=== PATIENT | female | born 1980 | race Hispanic/Latino ===

== ENCOUNTER 2023-12-03 16:38 | Emergency (ER) | payer OTHER ==
[~2023-12-03] VITALS: Ht 157.5 cm; Wt 53.1 kg
[2023-12-03] MEDS ORDERED: HYDROXYZINE PAM50 MG PO (17:10)
[2023-12-03] MEDS ORDERED: ESTRADIOL1 MG PO (17:10)
[2023-12-03] MEDS ORDERED: TOPIRAMATE50 MG PO (17:11)
[2023-12-03] MEDS ORDERED: METHOCARBAMOL500 MG PO (17:11)
[2023-12-03] MEDS ORDERED: diazePAM 10 MG/2 ML SYR IM ONE (17:30)
[2023-12-03] MEDS ORDERED: LIDOCAINE HCL 4% 1 EACH PATCH TD ONE (17:30)
[2023-12-03] MEDS ORDERED: KETOROLAC TROMETHAMINE 60 MG/2 ML VIAL IM ONE (17:30)
[2023-12-03] MEDS ORDERED: LIDODERM1 EACH TOP (18:22)
[2023-12-03] MEDS ORDERED: CYCLOBENZAPRINE10 MG PO (18:22)
[2023-12-03] MEDS ORDERED: KETOROLAC TROME10 MG PO (18:22)
[2023-12-03 18:46] VITALS: BP 120/75
[2023-12-03] MEDS ORDERED: LIDOCAINE PATCH REMOVAL 1 EA TD SCH (21:00)
== END 2023-12-03 18:46 | disposition home or self-care (01) ==
LOC: ED 16:38
DX: S39.012A Strain of muscle, fascia and tendon of lower back, initial encounter (principal); X50.0XXA Overexertion from strenuous movement or load, initial encounter; Z88.2 Allergy status to sulfonamides; Z79.899 Other long term (current) drug therapy
CPT/HCPCS: 96372; 99283-25; A9270; J1885; J3360